=== PATIENT | female | born 1935 | race Caucasian/White ===

== ENCOUNTER 2016-09-07 06:56 | Inpatient (IN) | payer OTHER ==
[~2016-09-07] VITALS: Ht 172.7 cm; Wt 59.8 kg
[~2016-09-07 06:56] MED LIST: ADVAIR HFA120 INHAL1 IH; BABY ASPIRIN81 M1 PO; CALCIUM 500 WI1 EAC2 PO; CYANOCOBALAM1000 MCG PO; CYCLOBENZAPRINE5 MG PO; FOSAMAX70 MG PO; LOPRESSOR25 MG PO; MOTRIN600 MG PO; PERCOCET 5/31 TABLET PO; PRILOSEC20 MG PO; PROAIR HFA8.5 GM IH; SPIRIVA RESPIMAT4 GM IH; SYMBICORT60 INHALAT IH; TYLENOL EXTRA500 MG PO; XARELTO20 MG PO
[2016-09-07 08:15] LABS: INTER. NORMALIZED RATIO 1.2; PROTHROMBIN TIME 12.3 (9.2-11.2)
[2016-09-07 08:16] LABS: EOSINOPHIL (%) 1.1 % (0-5); EOSINOPHIL COUNT 0.1 K/uL (0-0.3); HEMATOCRIT 25.5 % (36.0-46.0); IMMATURE GRANULOCYTE (%) 0.5 % (0.0-0.7); IMMATURE GRANULOCYTE COUNT 0.4 K/uL; LYMPHOCYTE COUNT 1.5 K/uL (1.0-2.8); MCH 28.6 PG (29.0-34.0); MCHC 29.8 G/DL (30.0-36.0); MCV 95.9 FL (83-99); MONOCYTE (%) 8.8 % (3-12); MONOCYTE COUNT 0.8 K/uL (0-0.8); NEUTROPHIL (%) 72.5 % (45-76); NEUTROPHIL COUNT 6.4 K/uL (1.8-6.4); RBC DIS.WIDTH-CV 15.9 % (11.8-14.6); RBC DIS.WIDTH-SD 52.3 % (39-53); WHITE BLOOD COUNT 8.8 K/uL (4.1-10.2)
[2016-09-07 08:20] LABS: CHLORIDE 105 mEq/L (99-109); POTASSIUM 4.7 mEq/L (3.7-5.4); SODIUM 141 mEq/L (136-147)
[2016-09-07 08:21] LABS: MAGNESIUM 1.7 mg/dL (1.3-2.7)
[2016-09-07 08:22] LABS: GLUCOSE 109 mg/dL (70-99)
[2016-09-07 08:24] LABS: ANION GAP 9 MEQ/L (2-14)
[2016-09-07 08:26] LABS: GFR ESTIMATE (CALCULATED) > 59 mL/min/; RED BLOOD COUNT 2.66 M/uL (3.80-5.20)
[2016-09-07 08:27] LABS: UREA NITROGEN (BUN) 18 mg/dL (9-23)
[2016-09-07 08:30] LABS: TROP-I INTERPRETATION NEGATIVE; TROPONIN-I < 0.01 ng/mL (0.0-0.30)
[2016-09-07] MEDS ORDERED: SYMBICORT60 INHALAT IH (08:30)
[2016-09-07 09:13] LABS: PLAT.SUFFICIENCY DECREASED; PLATELET COUNT 44 K/uL (156-360); USER ID STC
[2016-09-07 10:53] VITALS: BP 141/60
[2016-09-07 11:10] VITALS: BP 153/54
[2016-09-07 12:04] LABS: IRON 28 MCG/DL (35-150)
[2016-09-07 12:10] VITALS: BP 144/54; BP 156/40
[2016-09-07] MEDS ORDERED: BENADRYL25 MG PO (12:14)
[2016-09-07] MEDS ORDERED: EXTRA STRENGTH500 M1 PO (12:14)
[2016-09-07 12:26] LABS: TROP-I INTERPRETATION NEGATIVE; TROPONIN-I < 0.01 ng/mL (0.0-0.30)
[2016-09-07 13:03] VITALS: BP 140/64
[2016-09-07 15:55] LABS: HEMATOCRIT 30.7 % (36.0-46.0); MCV 93.3 FL (83-99)
[2016-09-07 17:45] VITALS: BP 155/66
[2016-09-07 18:52] LABS: TROP-I INTERPRETATION NEGATIVE; TROPONIN-I < 0.01 ng/mL (0.0-0.30)
[2016-09-07 23:52] VITALS: BP 115/66
[2016-09-08 01:05] LABS: HEMATOCRIT 29.8 % (36.0-46.0); MCV 92.3 FL (83-99)
[2016-09-08 04:15] VITALS: BP 110/64
[2016-09-08 08:07] VITALS: BP 136/59
[2016-09-08 09:24] LABS: HEMATOCRIT 30.7 % (36.0-46.0); MCV 92.5 FL (83-99)
[2016-09-08 09:55] LABS: ANION GAP 14 MEQ/L (2-14); CHLORIDE 98 MEQ/L (99-109); GFR ESTIMATE (CALCULATED) 51 mL/min/; GLUCOSE 147 mg/dL (70-99); POTASSIUM 3.9 MEQ/L (3.7-5.4); SAMPLE HEMOLYSIS CHECK 0; SAMPLE ICTERIC CHECK 0; SAMPLE LIPEMIA CHECK 0; SODIUM 141 MEQ/L (136-147)
[2016-09-08 10:04] LABS: UREA NITROGEN (BUN) 28 mg/dL (9-23)
[2016-09-08 11:47] VITALS: BP 131/56
[2016-09-08 15:27] VITALS: BP 116/54
[2016-09-08 15:58] LABS: HEMATOCRIT 27.7 % (36.0-46.0); MCV 91.4 FL (83-99)
[2016-09-08 19:33] VITALS: BP 138/67
[2016-09-08 21:59] LABS: NRBC (%) 0.6 /100 WBC (0-0)
[2016-09-08 23:50] VITALS: BP 133/70
[2016-09-08 23:56] LABS: EOSINOPHIL (%) 0 % (0-5); HEMATOCRIT 28.3 % (36.0-46.0); IMMATURE GRANULOCYTE (%) 0.3 % (0.0-0.7); LYMPHOCYTE COUNT 1.2 K/uL (1.0-2.8); MCHC 31.4 G/DL (30.0-36.0); MCV 92.2 FL (83-99); MONOCYTE (%) 5.9 % (3-12); MONOCYTE COUNT 0.8 K/uL (0-0.8); NEUTROPHIL (%) 84.6 % (45-76); NEUTROPHIL COUNT 10.8 K/uL (1.8-6.4); PLAT.SUFFICIENCY DECREASED; PLATELET COUNT 66 K/uL (156-360); RBC DIS.WIDTH-CV 15.9 % (11.8-14.6); RBC DIS.WIDTH-SD 53.2 % (39-53); RED BLOOD COUNT 3.07 M/uL (3.80-5.20); USER ID WCD; WHITE BLOOD COUNT 12.8 K/uL (4.1-10.2)
[2016-09-09 06:13] LABS: HEMATOCRIT 29.2 % (36.0-46.0); MCV 92.7 FL (83-99)
[2016-09-09 08:39] VITALS: BP 150/78
[2016-09-09 11:57] LABS: INTERNAL CONTROL VALID? YES
[2016-09-09 12:11] VITALS: BP 153/66
[2016-09-09 16:51] VITALS: BP 143/65
[2016-09-09 20:33] VITALS: BP 136/90
[2016-09-09 23:50] VITALS: BP 149/69
[2016-09-10 05:07] VITALS: BP 151/76
[2016-09-10 07:45] VITALS: BP 159/70
[2016-09-10 11:30] VITALS: BP 156/67
[2016-09-10 15:00] VITALS: BP 127/83
[2016-09-10 20:07] VITALS: BP 176/74
[2016-09-10 23:54] VITALS: BP 172/73
[2016-09-11 08:03] VITALS: BP 186/78
[2016-09-11 09:13] VITALS: BP 144/72
[2016-09-11 12:00] VITALS: BP 154/72
[2016-09-11] MEDS ORDERED: PREDNISONE10 MG PO (13:12)
[2016-09-11 15:24] VITALS: BP 120/69
== END 2016-09-11 16:04 | disposition home health service (06) | DRG 811 ==
LOC: EME 06:56 → EDOF 10:21 → 5SOUTH 17:33
PROVIDERS: Emergency Medicine; Hospitalist; Internal Medicine
PROC: 30233N1 Transfusion of Nonautologous Red Blood Cells into Peripheral Vein, Percutaneous Approach (ICD-10-PCS; principal; 2016-09-07)
DX: D50.0 Iron deficiency anemia secondary to blood loss (chronic) (principal); I50.33 Acute on chronic diastolic (congestive) heart failure; J44.1 Chronic obstructive pulmonary disease with (acute) exacerbation; J96.10 Chronic respiratory failure, unspecified whether with hypoxia or hypercapnia; Z99.81 Dependence on supplemental oxygen; I48.0 Paroxysmal atrial fibrillation; I11.0 Hypertensive heart disease with heart failure; D69.6 Thrombocytopenia, unspecified; G89.29 Other chronic pain; M54.9 Dorsalgia, unspecified; K63.5 Polyp of colon; I27.2 Other secondary pulmonary hypertension; K29.70 Gastritis, unspecified, without bleeding; K44.9 Diaphragmatic hernia without obstruction or gangrene; Z79.01 Long term (current) use of anticoagulants; Z87.891 Personal history of nicotine dependence; Z96.611 Presence of right artificial shoulder joint; Z88.0 Allergy status to penicillin; Z88.2 Allergy status to sulfonamides
CPT/HCPCS: 71010; 80048; 82272; 83540; 83735; 83880; 84466; 84484; 85014; 85018; 85025; 85610; 85730; 86850; 86900; 86901; 86920; 93005; 93306; 94640; 94640 76; 94760; 94799; 99202; 99281; 99285; J1940; J2930; P9016

== ENCOUNTER 2017-09-23 08:55 | Inpatient (IN) | payer OTHER ==
[~2017-09-23] VITALS: Ht 157.5 cm; Wt 82.6 kg
[~2017-09-23 08:55] MED LIST changes: +BENADRYL25 MG PO; +EXTRA STRENGTH500 M1 PO; +PREDNISONE10 MG PO
[2017-09-23 09:42] LABS: HEMATOCRIT 33.5 % (36.0-46.0); HEMOGLOBIN 10.1 G/DL (11.9-15.5); MCH 29.3 PG (29.0-34.0); MCHC 30.1 G/DL (30.0-36.0); MCV 97.1 FL (83-99); NRBC (%) 0.3 /100 WBC (0-0); RBC DIS.WIDTH-CV 15.7 % (11.8-14.6); RBC DIS.WIDTH-SD 55.6 % (39-53); RED BLOOD COUNT 3.45 M/uL (3.80-5.20); WHITE BLOOD COUNT 14.7 K/uL (4.1-10.2)
[2017-09-23 09:43] LABS: PLATELET COUNT 93 K/uL (156-360)
[2017-09-23 09:44] LABS: CHLORIDE 101 mEq/L (99-109); POTASSIUM 5.3 mEq/L (3.7-5.4); SODIUM 140 mEq/L (136-147)
[2017-09-23 09:46] LABS: GLUCOSE 116 mg/dL (70-99)
[2017-09-23 09:50] LABS: CREATININE 1.2 mg/dL (0.6-1.3); GFR ESTIMATE (CALCULATED) 46 mL/min/
[2017-09-23 09:51] LABS: UREA NITROGEN (BUN) 19 mg/dL (9-23)
[2017-09-23 09:58] LABS: TROP-I INTERPRETATION NEGATIVE; TROPONIN-I < 0.01 ng/mL (0.0-0.30)
[2017-09-23] MEDS ORDERED: LASIX20 MG PO (11:16)
[2017-09-23] MEDS ORDERED: KLOR-CON 1010 ME1 PO (11:17)
[2017-09-23] MEDS ORDERED: SINEQUAN25 MG PO (11:17)
[2017-09-23] MEDS ORDERED: PROVENTIL,2.5 MG/3 M IH (16:58)
[2017-09-23 18:54] LABS: TROP-I INTERPRETATION NEGATIVE; TROPONIN-I < 0.01 ng/mL (0.0-0.30)
[2017-09-23 21:00] VITALS: BP 116/58
[2017-09-23 22:17] LABS: APPEARANCE CLEAR ((CLEAR)); BILIRUBIN NEGATIVE; BLOOD NEGATIVE; COLOR YELLOW ((YELLOW)); GLUCOSE (STRIP) NEGATIVE; KETONES NEGATIVE; LEUKOCYTES NEGATIVE; NITRITE NEGATIVE; PROTEIN (STRIP) NEGATIVE; SPECIFIC GRAVITY 1.011 (1.000-1.030); UROBILINOGEN 0.2 MG/DL (0.2-1.0)
[2017-09-24] VITALS (7 sets, daily range): BP systolic 110–145; BP diastolic 56–72
[2017-09-24 05:50] LABS: TROP-I INTERPRETATION NEGATIVE; TROPONIN-I < 0.01 ng/mL (0.0-0.30)
[2017-09-24 05:55] LABS: HEMATOCRIT 29.2 % (36.0-46.0); HEMOGLOBIN 8.9 G/DL (11.9-15.5); MCH 29.1 PG (29.0-34.0); MCHC 30.5 G/DL (30.0-36.0); MCV 95.4 FL (83-99); NRBC (%) 0.2 /100 WBC (0-0); RBC DIS.WIDTH-CV 15.9 % (11.8-14.6); RBC DIS.WIDTH-SD 55.7 % (39-53); RED BLOOD COUNT 3.06 M/uL (3.80-5.20)
[2017-09-24 06:05] LABS: CHLORIDE 97 MEQ/L (99-109); CREATININE 2.5 MG/DL (0.6-1.3); GFR ESTIMATE (CALCULATED) 20 mL/min/; GLUCOSE 167 mg/dL (70-99); POTASSIUM 5.5 MEQ/L (3.7-5.4); SODIUM 135 MEQ/L (136-147); UREA NITROGEN (BUN) 33 mg/dL (9-23)
[2017-09-24 06:23] LABS: PLAT.SUFFICIENCY DECREASED; PLATELET COUNT ND K/uL (156-360)
[2017-09-24 09:19] LABS: BASOPHIL (%) 0.1 % (0-1); EOSINOPHIL (%) 0 % (0-5); HEMATOCRIT 29.7 % (36.0-46.0); IMMATURE GRANULOCYTE (%) 1.4 % (0.0-0.7); LYMPHOCYTE (%) 10.4 % (15-42); LYMPHOCYTE COUNT 1.5 K/uL (1.0-2.8); MCHC 30.3 G/DL (30.0-36.0); MCV 95.8 FL (83-99); MONOCYTE (%) 1.4 % (3-12); MONOCYTE COUNT 0.2 K/uL (0-0.8); NEUTROPHIL (%) 86.7 % (45-76); NEUTROPHIL COUNT 12.5 K/uL (1.8-6.4); NRBC (%) 0.3 /100 WBC (0-0); RBC DIS.WIDTH-CV 15.7 % (11.8-14.6); WHITE BLOOD COUNT 14.4 K/uL (4.1-10.2)
[2017-09-24 09:31] LABS: CHLORIDE 96 MEQ/L (99-109); POTASSIUM 5.4 MEQ/L (3.7-5.4); SODIUM 137 MEQ/L (136-147)
[2017-09-24 09:37] LABS: CREATININE 2.3 MG/DL (0.6-1.3); GFR ESTIMATE (CALCULATED) 22 mL/min/; GLUCOSE 146 mg/dL (70-99); UREA NITROGEN (BUN) 35 mg/dL (9-23)
[2017-09-24 09:45] LABS: PLAT.SUFFICIENCY DECREASED; PLATELET CLUMPS PRESENT - PLATELET COUNTS APPEARS DECREASED
[2017-09-24 09:53] LABS: PLATELET COUNT UNABLE TO REPORT K/uL (156-360)
[2017-09-25 04:06] VITALS: BP 120/78
[2017-09-25 06:39] LABS: BASOPHIL (%) 0.1 % (0-1); EOSINOPHIL (%) 0 % (0-5); HEMATOCRIT 27.6 % (36.0-46.0); HEMOGLOBIN 8.3 G/DL (11.9-15.5); IMMATURE GRANULOCYTE (%) 1.1 % (0.0-0.7); LYMPHOCYTE (%) 7.5 % (15-42); LYMPHOCYTE COUNT 1.1 K/uL (1.0-2.8); MCH 28.9 PG (29.0-34.0); MCHC 30.1 G/DL (30.0-36.0); MCV 96.2 FL (83-99); MONOCYTE (%) 1.7 % (3-12); MONOCYTE COUNT 0.2 K/uL (0-0.8); NEUTROPHIL (%) 89.6 % (45-76); NEUTROPHIL COUNT 12.5 K/uL (1.8-6.4); NRBC (%) 0.4 /100 WBC (0-0); RBC DIS.WIDTH-CV 15.6 % (11.8-14.6); RED BLOOD COUNT 2.87 M/uL (3.80-5.20); WHITE BLOOD COUNT 13.9 K/uL (4.1-10.2)
[2017-09-25 07:01] LABS: CHLORIDE 100 MEQ/L (99-109); CREATININE 1.9 MG/DL (0.6-1.3); GFR ESTIMATE (CALCULATED) 27 mL/min/; GLUCOSE 135 mg/dL (70-99); MAGNESIUM 1.6 mg/dl (1.3-2.7); PHOSPHORUS 3.8 mg/dL (2.5-4.9); POTASSIUM 5.3 MEQ/L (3.7-5.4); SODIUM 138 MEQ/L (136-147); UREA NITROGEN (BUN) 43 mg/dL (9-23)
[2017-09-25 07:45] VITALS: BP 133/68
[2017-09-25 08:40] LABS: HEMATOLOGY COMMENT 1 SMEAR COMPATIBLE; PLAT.SUFFICIENCY DECREASED
[2017-09-25 08:46] LABS: PLATELET COUNT 71 K/uL (156-360)
[2017-09-25 11:47] VITALS: BP 187/77
[2017-09-25 16:00] VITALS: BP 138/62
[2017-09-25 20:00] VITALS: BP 167/70
[2017-09-26] VITALS (7 sets, daily range): BP systolic 121–178; BP diastolic 0–77
[2017-09-26 05:45] LABS: BASOPHIL (%) 0.1 % (0-1); EOSINOPHIL (%) 0 % (0-5); HEMATOCRIT 27.5 % (36.0-46.0); HEMOGLOBIN 8.2 G/DL (11.9-15.5); IMMATURE GRANULOCYTE (%) 2.9 % (0.0-0.7); LYMPHOCYTE (%) 4.8 % (15-42); LYMPHOCYTE COUNT 0.7 K/uL (1.0-2.8); MCH 29.3 PG (29.0-34.0); MCHC 29.8 G/DL (30.0-36.0); MCV 98.2 FL (83-99); MONOCYTE (%) 2.5 % (3-12); MONOCYTE COUNT 0.4 K/uL (0-0.8); NEUTROPHIL (%) 89.7 % (45-76); NEUTROPHIL COUNT 12.4 K/uL (1.8-6.4); NRBC (%) 0.3 /100 WBC (0-0); RBC DIS.WIDTH-SD 58.3 % (39-53); WHITE BLOOD COUNT 13.8 K/uL (4.1-10.2)
[2017-09-26 05:56] LABS: CHLORIDE 104 MEQ/L (99-109); CREATININE 1.8 MG/DL (0.6-1.3); GFR ESTIMATE (CALCULATED) 29 mL/min/; GLUCOSE 131 mg/dL (70-99); SODIUM 141 MEQ/L (136-147); UREA NITROGEN (BUN) 44 mg/dL (9-23)
[2017-09-26 05:57] LABS: HEMATOLOGY COMMENT 1 SN; PLAT.SUFFICIENCY DECREASED
[2017-09-26 05:58] LABS: PLATELET COUNT UNABLE TO REPORT K/uL (156-360)
[2017-09-27 03:00] VITALS: BP 117/65
[2017-09-27 05:57] LABS: BASOPHIL (%) 0.1 % (0-1); EOSINOPHIL (%) 0 % (0-5); HEMATOCRIT 27.6 % (36.0-46.0); HEMOGLOBIN 8.4 G/DL (11.9-15.5); IMMATURE GRANULOCYTE (%) 3.4 % (0.0-0.7); LYMPHOCYTE (%) 5.7 % (15-42); LYMPHOCYTE COUNT 0.8 K/uL (1.0-2.8); MCH 29.6 PG (29.0-34.0); MCHC 30.4 G/DL (30.0-36.0); MCV 97.2 FL (83-99); MONOCYTE (%) 1.9 % (3-12); MONOCYTE COUNT 0.3 K/uL (0-0.8); NEUTROPHIL (%) 88.9 % (45-76); NEUTROPHIL COUNT 12.4 K/uL (1.8-6.4); NRBC (%) 0.4 /100 WBC (0-0); RBC DIS.WIDTH-CV 16.1 % (11.8-14.6); RBC DIS.WIDTH-SD 57.8 % (39-53); RED BLOOD COUNT 2.84 M/uL (3.80-5.20); WHITE BLOOD COUNT 13.9 K/uL (4.1-10.2)
[2017-09-27 05:58] LABS: PLATELET COUNT 68 K/uL (156-360)
[2017-09-27 06:18] LABS: CHLORIDE 104 MEQ/L (99-109); CREATININE 1.5 MG/DL (0.6-1.3); GFR ESTIMATE (CALCULATED) 35 mL/min/; GLUCOSE 141 mg/dL (70-99); POTASSIUM 5.2 MEQ/L (3.7-5.4); SODIUM 139 MEQ/L (136-147); UREA NITROGEN (BUN) 52 mg/dL (9-23)
[2017-09-27 08:41] VITALS: BP 147/65
[2017-09-27 12:38] VITALS: BP 127/85
[2017-09-27 16:00] VITALS: BP 136/62
[2017-09-27 20:30] VITALS: BP 142/58
[2017-09-28] VITALS (7 sets, daily range): BP systolic 120–153; BP diastolic 65–88
[2017-09-28 05:08] LABS: HEMATOCRIT 27.2 % (36.0-46.0); HEMOGLOBIN 8.4 G/DL (11.9-15.5); MCH 29.9 PG (29.0-34.0); MCHC 30.9 G/DL (30.0-36.0); MCV 96.8 FL (83-99); NRBC (%) 0.4 /100 WBC (0-0); PLATELET COUNT 81 K/uL (156-360); RBC DIS.WIDTH-SD 57.9 % (39-53); RED BLOOD COUNT 2.81 M/uL (3.80-5.20); WHITE BLOOD COUNT 11.1 K/uL (4.1-10.2)
[2017-09-28 05:15] LABS: CHLORIDE 108 mEq/L (99-109); SODIUM 141 mEq/L (136-147)
[2017-09-28 05:16] LABS: GLUCOSE 130 mg/dL (70-99)
[2017-09-28 05:20] LABS: CREATININE 1.4 mg/dL (0.6-1.3); GFR ESTIMATE (CALCULATED) 38 mL/min/
[2017-09-28 05:21] LABS: UREA NITROGEN (BUN) 51 mg/dL (9-23)
[2017-09-29 04:00] VITALS: BP 143/73
[2017-09-29 08:37] LABS: CHLORIDE 108 MEQ/L (99-109); POTASSIUM 4.9 MEQ/L (3.7-5.4); SODIUM 145 MEQ/L (136-147)
[2017-09-29 08:45] LABS: CREATININE 1.1 MG/DL (0.6-1.3); GFR ESTIMATE (CALCULATED) 51 mL/min/; UREA NITROGEN (BUN) 45 mg/dL (9-23)
[2017-09-29 08:46] LABS: GLUCOSE 80 mg/dL (70-99)
[2017-09-29 08:58] VITALS: BP 117/80
[2017-09-29 12:25] VITALS: BP 158/68
[2017-09-29 16:45] VITALS: BP 132/86
[2017-09-29 20:33] VITALS: BP 144/81
[2017-09-29 23:07] VITALS: BP 124/86
[2017-09-30 03:33] VITALS: BP 155/72
[2017-09-30 05:46] LABS: BASOPHIL (%) 0.2 % (0-1); BASOPHIL COUNT 0.1 K/uL (0-0.1); EOSINOPHIL (%) 0 % (0-5); HEMOGLOBIN 9.8 G/DL (11.9-15.5); LYMPHOCYTE (%) 11.8 % (15-42); LYMPHOCYTE COUNT 2.4 K/uL (1.0-2.8); MCH 28.6 PG (29.0-34.0); MCHC 29.7 G/DL (30.0-36.0); MCV 96.2 FL (83-99); MONOCYTE (%) 5.6 % (3-12); MONOCYTE COUNT 1.2 K/uL (0-0.8); NEUTROPHIL (%) 78.4 % (45-76); NEUTROPHIL COUNT 16.1 K/uL (1.8-6.4); NRBC (%) 0.8 /100 WBC (0-0); RBC DIS.WIDTH-CV 16.5 % (11.8-14.6); RBC DIS.WIDTH-SD 58.5 % (39-53); WHITE BLOOD COUNT 20.6 K/uL (4.1-10.2)
[2017-09-30 05:59] LABS: PLATELET COUNT 109 K/uL (156-360); RED BLOOD COUNT 3.43 M/uL (3.80-5.20)
[2017-09-30 06:30] LABS: CHLORIDE 105 MEQ/L (99-109); CREATININE 1.5 MG/DL (0.6-1.3); GFR ESTIMATE (CALCULATED) 35 mL/min/; GLUCOSE 93 mg/dL (70-99); POTASSIUM 4.7 MEQ/L (3.7-5.4); SODIUM 144 MEQ/L (136-147); UREA NITROGEN (BUN) 51 mg/dL (9-23)
[2017-09-30 08:00] VITALS: BP 141/74
[2017-09-30 11:31] VITALS: BP 133/78
[2017-09-30 15:34] VITALS: BP 133/78
[2017-09-30 19:45] VITALS: BP 155/87
[2017-10-01] VITALS: BP 154/85
[2017-10-01 03:32] VITALS: BP 140/78
[2017-10-01 06:42] LABS: BASOPHIL (%) 0.2 % (0-1); EOSINOPHIL (%) 0.3 % (0-5); EOSINOPHIL COUNT 0.1 K/uL (0-0.3); HEMATOCRIT 31.1 % (36.0-46.0); HEMOGLOBIN 9.7 G/DL (11.9-15.5); IMMATURE GRANULOCYTE (%) 4.5 % (0.0-0.7); LYMPHOCYTE (%) 10.9 % (15-42); LYMPHOCYTE COUNT 1.9 K/uL (1.0-2.8); MCH 29.8 PG (29.0-34.0); MCHC 31.2 G/DL (30.0-36.0); MCV 95.7 FL (83-99); MONOCYTE (%) 5.5 % (3-12); NEUTROPHIL (%) 78.6 % (45-76); NEUTROPHIL COUNT 13.9 K/uL (1.8-6.4); NRBC (%) 0.8 /100 WBC (0-0); RBC DIS.WIDTH-CV 16.4 % (11.8-14.6); RBC DIS.WIDTH-SD 57.3 % (39-53); RED BLOOD COUNT 3.25 M/uL (3.80-5.20); WHITE BLOOD COUNT 17.7 K/uL (4.1-10.2)
[2017-10-01 06:57] LABS: CHLORIDE 103 MEQ/L (99-109); CREATININE 1.2 MG/DL (0.6-1.3); GFR ESTIMATE (CALCULATED) 46 mL/min/; GLUCOSE 79 mg/dL (70-99); POTASSIUM 4.2 MEQ/L (3.7-5.4); SODIUM 143 MEQ/L (136-147); UREA NITROGEN (BUN) 46 mg/dL (9-23)
[2017-10-01 07:54] LABS: ANISOCYTOSIS 1+; HYPOCHROMASIA 1+; PLAT.SUFFICIENCY DECREASED; PLATELET COUNT 87 K/uL (156-360); POLYCHROMASIA 1+
[2017-10-01 08:41] VITALS: BP 177/77
[2017-10-01 12:30] VITALS: BP 128/66
[2017-10-01 18:18] VITALS: BP 130/64
[2017-10-01 21:00] VITALS: BP 140/58
[2017-10-02 00:15] VITALS: BP 145/60
[2017-10-02 03:51] VITALS: BP 150/67
[2017-10-02 06:47] LABS: CHLORIDE 99 MEQ/L (99-109); GFR ESTIMATE (CALCULATED) 31 mL/min/; POTASSIUM 4.6 MEQ/L (3.7-5.4); SODIUM 140 MEQ/L (136-147); UREA NITROGEN (BUN) 67 mg/dL (9-23)
[2017-10-02 06:57] LABS: CREATININE 1.7 MG/DL (0.6-1.3); GLUCOSE 132 mg/dL (70-99)
[2017-10-02 08:10] VITALS: BP 144/61
[2017-10-02 11:48] VITALS: BP 160/82
[2017-10-02 18:20] VITALS: BP 157/78
[2017-10-02 20:45] VITALS: BP 168/82
[2017-10-03 00:20] VITALS: BP 150/78
[2017-10-03 02:41] VITALS: BP 131/70
[2017-10-03 06:03] LABS: CHLORIDE 104 MEQ/L (99-109); CREATININE 1.3 MG/DL (0.6-1.3); GFR ESTIMATE (CALCULATED) 42 mL/min/; GLUCOSE 128 mg/dL (70-99); POTASSIUM 4.8 MEQ/L (3.7-5.4); SODIUM 140 MEQ/L (136-147); UREA NITROGEN (BUN) 55 mg/dL (9-23)
[2017-10-03 08:29] VITALS: BP 147/65
[2017-10-03 10:32] VITALS: BP 142/64
[2017-10-03 15:29] VITALS: BP 178/72
[2017-10-03 19:37] VITALS: BP 152/66
[2017-10-04 01:00] VITALS: BP 164/73
[2017-10-04 03:15] VITALS: BP 153/67
[2017-10-04 05:53] LABS: CHLORIDE 102 MEQ/L (99-109); CREATININE 1.4 MG/DL (0.6-1.3); GFR ESTIMATE (CALCULATED) 38 mL/min/; GLUCOSE 125 mg/dL (70-99); POTASSIUM 4.4 MEQ/L (3.7-5.4); SODIUM 140 MEQ/L (136-147); UREA NITROGEN (BUN) 59 mg/dL (9-23)
[2017-10-04 07:37] VITALS: BP 164/72
[2017-10-04 08:53] LABS: THYROTROPIN (TSH) 1.1 MIU/L (0.4-5.5)
[2017-10-04 10:59] VITALS: BP 139/70
[2017-10-04] MEDS ORDERED: LOPRESSOR50 MG PO (15:27)
[2017-10-04] MEDS ORDERED: DOXYCYCLINE HY100 M3 PO (15:27)
[2017-10-04] MEDS ORDERED: CARDIZEM CD,CA240 MG PO (15:28)
[2017-10-04] MEDS ORDERED: PREDNISONE10 MG PO (15:29)
[2017-10-04] MEDS ORDERED: XOPENEX1.25 MG/0. AEROSOL (16:38)
== END 2017-10-04 16:47 | disposition home health service (06) | DRG 308 ==
LOC: EME 08:55 → 4EAST 11:43 → EDOF 11:43 → ENRESERV 11:48 → 4EAST 20:53
PROVIDERS: Family Medicine; Internal Medicine; Internal Medicine Nephrology
DX: I48.0 Paroxysmal atrial fibrillation (principal); I48.92 Unspecified atrial flutter; N17.0 Acute kidney failure with tubular necrosis; J96.21 Acute and chronic respiratory failure with hypoxia; J18.9 Pneumonia, unspecified organism; J44.0 Chronic obstructive pulmonary disease with (acute) lower respiratory infection; J44.1 Chronic obstructive pulmonary disease with (acute) exacerbation; Z99.81 Dependence on supplemental oxygen; I13.0 Hypertensive heart and chronic kidney disease with heart failure and stage 1 through stage 4 chronic kidney disease, or unspecified chronic kidney disease; I50.32 Chronic diastolic (congestive) heart failure; N18.3 Chronic kidney disease, stage 3 (moderate); E87.5 Hyperkalemia; D69.6 Thrombocytopenia, unspecified; D64.9 Anemia, unspecified; I73.00 Raynaud's syndrome without gangrene; G89.29 Other chronic pain; M54.9 Dorsalgia, unspecified; K21.9 Gastro-esophageal reflux disease without esophagitis; Z79.51 Long term (current) use of inhaled steroids; Z79.52 Long term (current) use of systemic steroids; Z79.83 Long term (current) use of bisphosphonates; Z87.891 Personal history of nicotine dependence; Z96.611 Presence of right artificial shoulder joint
CPT/HCPCS: 71045; 71046; 71250; 76770; 80048; 80048 91; 81003; 82948; 83735; 84100; 84443; 84484; 85025; 85027; 87040; 87086; 87449; 87502; 87641; 93005; 94640; 94640 76; 94760; 94799; 99202; 99281; 99285; J0456; J0696; J1160; J1644; J1940; J2920; J2930; J7030; J7050; J7512